=== PATIENT | female | born 1960 | race Hispanic/Latino ===

== ENCOUNTER 2018-08-19 15:31 | Outpatient (CLI) | payer BC ==
--- NOTE | 2018-08-21 11:12 | RAD ---
PA AND LATERAL CHEST: Date: 08/19/18 HISTORY: Syncope, fatigue. FINDINGS: Heart size within normal limits. Mediastinal structures appear unremarkable. Lungs are clear of infil trates. Minimal arthritic changes of the spine are noted. IMPRESSION: No active intrathoracic disease. POS: [facility]
== END 2018-08-19 15:32 | disposition home or self-care (01) ==
LOC: BICRAD 15:31
PROVIDERS: ATTEND Family Medicine
DX: I10 Essential (primary) hypertension (principal); R53.83 Other fatigue
CPT/HCPCS: 71046

== ENCOUNTER 2018-08-30 07:03 | Outpatient (CLI) | payer BC ==
--- NOTE | 2018-08-30 07:46 | ULT ---
US Thyroid STANDARD History: [M 54.2] Comparison: None. Findings: Real-time grayscale and color evaluation of the thyroid was performed. The thyroid is enlar ged. Isthmus measures 8 mm in AP dimension. Right lobe measures 2.3 x 6.2 x 2.7 cm and left lobe alessio ures 2.1 x 5.7 x 1.9 cm. There are background hyperechoic nodules throughout the thyroid which are very small, largest in the inferior right lobe measuring 4 mm. Impression: Enlarged heterogeneous thyroid with multiple small faint echogenic nodules largest in the right lobe of the thyroid can be seen with Wilfredo thyroiditis.
== END 2018-08-30 07:04 | disposition home or self-care (01) ==
LOC: BICULT 07:03
PROVIDERS: ATTEND Family Medicine
DX: I10 Essential (primary) hypertension (principal); R53.83 Other fatigue; E04.2 Nontoxic multinodular goiter; E04.9 Nontoxic goiter, unspecified
CPT/HCPCS: 76536

== ENCOUNTER 2018-09-24 16:52 | Observation (INO) | payer BC ==
[2018-09-24 17:18] LABS: #Basophils 0.1 thou/uL (0.0-0.2); #Eosinphils 0.1 thou/uL (0.0-0.7); #Lymphocytes 2.8 thou/uL (1.20-3.40); #Monocytes 0.7 thou/uL (0.11-0.59); #Neutrophils 7.9 thou/uL (1.40-6.50); %Basophils 0.6 % (0.0-1.0); %Lymphocytes 24.1 % (21.0-51.0); %Monocytes 5.8 % (0.0-10.0); %Neutrophils 68.5 % (42.0-75.0); Hemoglobin 12.3 g/dL (12.0-16.0); Mean Corpuscular HGB CONC 33.2 g/dL (32.0-36.0); Mean Corpuscular Hemoglobin 28.2 pg (27.0-31.0); Mean Corpuscular Volume 84.9 fL (78.0-98.0); Mean Platelet Volume 6.8 fL (7.4-10.4); Platelet Count 284 thou/uL (130-400); RBC Distribution Width 12.2 % (11.5-14.5); Red Blood Cell (RBC) Count 4.35 mill/uL (4.20-5.40); White Blood Cell (WBC) Count 11.6 thou/uL (4.8-10.8)
--- NOTE | 2018-09-24 17:28 | RAD ---
Portable frontal chest radiograph: 09/24/2018 COMPARISON: 08/19/2018 HISTORY: Fatigue FINDINGS: Stable mild increased linear interstitial density noted in the perihilar regions and both l fabi bases. No pneumothorax, pleural fluid, focal consolidation, or alveolar edema. IMPRESSION: No acute findings.
[2018-09-24 17:39] LABS: ALT (SGPT) 17 U/L (8-55); AST (SGOT) 21 U/L (5-34); Albumin 4.1 g/dL (3.5-5.0); Alkaline Phosphatase 122 U/L (40-150); Anion Gap 18 mmol/L (10-20); BUN (Urea Nitrogen) 31 mg/dL (9.8-20.1); Bilirubin, Total 0.6 mg/dL (0.2-1.2); CK (CPK) 112 U/L (29-168); Calc. Creatinine Clearance 0 mL/min (70-130); Calcium 9.6 mg/dL (7.8-10.44); Carbon Dioxide 22 mmol/L (22-29); Chloride 101 mmol/L (98-107); Estimated GFR-MDRD 48; Glucose 102 mg/dL (70-105); Potassium 4.4 mmol/L (3.5-5.1); Protein, Total 7.1 g/dL (6.0-8.3); Sodium 137 mmol/L (136-145)
[2018-09-24] MEDS ORDERED: Acetaminophen 650 MG Suppository PR PRN (19:46)
[2018-09-24] MEDS ORDERED: Ondansetron ODT 4 MG TAB PO PRN (19:46)
[2018-09-24] MEDS ORDERED: Acetaminophen 325 MG TAB PO PRN (19:46)
--- NOTE | 2018-09-24 20:00 | RAD ---
Right foot 3 views: 09/24/2018 COMPARISON: None HISTORY: Injury, trauma, pain FINDINGS: Impacted and laterally angulated fracture deformities are noted at the base of the second, third, and fourth metatarsal heads with mild comminution and impaction. No evidence for dislocation. There is degenerative change at the first metatarsal-phalangeal joint. There is enthesop hyte formation at the origin of the plantar aponeurosis. IMPRESSION: Fracture deformities at the base of the second, third, and fourth metatarsal heads.
[2018-09-24 20:27] LABS: Free T4 (Free Thyroxine) 2.17 ng/dL (0.70-1.48); Thyroid Stimulating Hormone Less than 0.0025 uIU/mL (0.35-4.94)
[2018-09-24 21:28] VITALS: BMI 35.9
[2018-09-24] MEDS ORDERED: Dextrose 5% in Water 1,000 ML IV PRN (22:54)
[2018-09-24] MEDS ORDERED: Dextrose 50% Abboject 50 ML SYRINGE SLOW IVP PRN (22:54)
[2018-09-24] MEDS ORDERED: HumaLOG 300 UNITS/3 ML VIAL SC PRN ×2 (22:54)
[2018-09-24 23:13] LABS: Bilirubin Negative (Negative); Blood, Urine Negative (Negative); Clarity CLEAR (Clear); Glucose, Urine (Dipstick) Negative (Negative); Leukocyte Trace (Negative); Nitrite Negative (Negative); Protein, Urine (Dipstick) Negative (Neg-Trace); Specific Gravity, Urine 1.013 (1.002-1.036)
[2018-09-24 23:15] LABS: Bacteria/HPF None Seen HPF (None Seen); Hyaline Casts/LPF 0-3 HYALINE CAST LPF (0-3 Hyaline); Pathc Cast-AUWi Flag 0.13 (0-2.49); RBC/HPF 0-3 HPF (0-3); Squamous Epithelial 0-3 HPF (0-3)
[2018-09-24 23:16] LABS: Urine Culture Reflex Yes Yes
[2018-09-24] MEDS: Famotidine 20 MG TAB PO SCH (23:40)
[2018-09-24] MEDS ORDERED: Methimazole 5 MG TAB PO SCH (23:45)
[2018-09-25 05:34] LABS: #Eosinphils 0.2 thou/uL (0.0-0.7); #Lymphocytes 2.3 thou/uL (1.20-3.40); #Monocytes 0.6 thou/uL (0.11-0.59); %Basophils 0.4 % (0.0-1.0); %Eosinophils 1.8 % (0.0-10.0); %Lymphocytes 25.2 % (21.0-51.0); %Monocytes 6.9 % (0.0-10.0); %Neutrophils 65.7 % (42.0-75.0); Hemoglobin 11.8 g/dL (12.0-16.0); Mean Corpuscular HGB CONC 33.4 g/dL (32.0-36.0); Mean Corpuscular Hemoglobin 28.4 pg (27.0-31.0); Mean Platelet Volume 7.1 fL (7.4-10.4); Platelet Count 262 thou/uL (130-400); RBC Distribution Width 12.1 % (11.5-14.5); Red Blood Cell (RBC) Count 4.16 mill/uL (4.20-5.40); White Blood Cell (WBC) Count 9.1 thou/uL (4.8-10.8)
--- NOTE | 2018-09-25 05:40 | HP ---
CHIEF COMPLAINT: Chest pain. HISTORY OF PRESENT ILLNESS: Ms. Flores is a 57-year-old woman who presents with complaints of midsternal chest pain that started this morning at approximately 8:00 a.m. She states it lasted a couple of minutes and was recurrent for a total of three episodes. She denies having any associated nausea, vomiting, or diaphoresis. No shortness of breath or palpitations. She reports walking in a restaurant when she was witnessed to have a syncopal episode. The patient does not recall any preceding symptoms and vaguely remembers waking on the ground with a passerby standing over her. The patient states she has had no further chest pain since then. She reports having pain in the right foot with numbness of the first through fourth toes. Denies any other pain elsewhere. No headaches or dizziness. No vision changes or speech disturbances. The patient did not sustain any other injuries including any head injuries. She is not sure if she did hit her head. REVIEW OF SYSTEMS: All other systems apart from those mentioned above are negative. She has not had any recent fevers, chills, or sweats. No abdominal pain or cramping. No changes with her bowels. No urinary symptoms. The patient vaguely mentioned experiencing shortness of breath at some point throughout the day, but was very vague. She is a poor historian in terms of being very vague in describing her symptoms. All other review of systems are negative. PAST MEDICAL HISTORY: 1. Diabetes. 2. Hyperlipidemia. 3. Hypertension. SURGICAL HISTORY: Abdominal surgery in the past. SOCIAL HISTORY: The patient denies any alcohol use or drug use. She smokes three cigarettes a day. ALLERGIES: NO KNOWN DRUG ALLERGIES. CURRENT MEDICATIONS: 1. Bisoprolol/HCTZ. 2. Lisinopril/HCTZ. 3. Fluoxetine HCl. 4. Potassium chloride. 5. Metformin. 6. Methimazole. PHYSICAL EXAMINATION: GENERAL: The patient appears well developed, well nourished, is in no acute distress. VITAL SIGNS: Temperature 98.1, pulse 83, respirations 18, O2 saturation 99% on room air, blood pressure 110/58. HEENT: Normocephalic and atraumatic. Pupils are equal, round, and reactive to light. Sclerae are anicteric. Sclerae without icterus. Extraocular movements intact. No nystagmus present. Oropharynx is clear. NECK: Supple without lymphadenopathy. Large thyroid present. The patient reports some discomfort on the right side of the posterior neck to reach of motion. No cervical spine, thoracic, or lumbar spine tenderness. LUNGS: Clear to auscultation bilaterally. CARDIAC: Regular rhythm. ABDOMEN: Soft, nontender, and nondistended. Normoactive bowel sounds present. EXTREMITIES: No swelling or edema. Power 5/5 in all limbs. Sensation intact except for the first, second, third, and fourth toes. The patient has circumferential numbness with tenderness at the base of the first, second, third, and fourth metatarsal heads. The patient has been unable to bear weight due to pain. Very tender to light palpation. NEUROLOGIC: Alert and oriented x3. No neuro deficits. Speech normal. Facial movements normal and sensation intact. LABORATORY DATA: White blood count 11.6, hemoglobin 12.3, hematocrit 37, platelets 284. Sodium 137, potassium 4.4, chloride 101, carbon dioxide 22, anion gap 18, BUN 31, creatinine 1.17, GFR 48, glucose 102, calcium 9.6, magnesium 1.9, total bilirubin 0.6, AST 21, ALT 17, and alkaline phosphatase 122. CK 112. Troponin negative x3. IMAGING DATA: Chest x-ray, no acute findings. IMPRESSION AND PLAN: Ms. Flores is a very pleasant 57-year-old woman being admitted for management of the followin. Chest pain. She had an episode of chest pain today, which occurred on 3 separate occasions, each lasting a couple of minutes over the span of approximately 3 hours. The pain was nonradiating and midsternal. No associated symptoms. Initial first and second troponin negative. BNP added on. Questionable associated shortness of breath. D-dimer added on. 2. Syncope. We will obtain orthostatic blood pressures. Echo requested. No evidence of head trauma and no headache. No nausea or vomiting. We will monitor and if she develops any symptoms, may consider CT imaging of the head. She is not on any blood thinners. 3. Thyroid disease. We will resume home medications. The patient states she has noted increased swelling of her neck region. We will resume home medication. 4. Diabetes. We will resume home medication and initiate insulin sliding scale. Monitor glucose. 5. Hypertension. We will resume home medications and monitor blood pressure. 6. Gastrointestinal prophylaxis. 7. Deep venous thrombosis prophylaxis. 8. Full code status. The patient's case was discussed with attending who agrees with plan of care as described above. Job ID: [id number]
[2018-09-25 05:56] LABS: Anion Gap 10 mmol/L (10-20); BUN (Urea Nitrogen) 29 mg/dL (9.8-20.1); Calc. Creatinine Clearance 120 mL/min (70-130); Calcium 9.7 mg/dL (7.8-10.44); Carbon Dioxide 26 mmol/L (22-29); Cardiac Risk 5.7 (Less than 4.5); Chloride 104 mmol/L (98-107); Cholesterol 137 mg/dl (< 200 Desired); Estimated GFR-MDRD 73; Glucose 124 mg/dL (70-105); HDL Cholesterol 24 mg/dL (>60 Neg Risk); LDL Cholesterol, Calculated 79 mg/dL; Sodium 136 mmol/L (136-145); Triglycerides 172 mg/dL (Less than 150)
[2018-09-25] MEDS: Sodium Chloride 0.9% 1,000 ML IV SCH ×2 (07:40→10:04)
[2018-09-25] MEDS ORDERED: metFORMIN 500 MG TAB PO SCH (08:00)
[2018-09-25] MEDS ORDERED: Methimazole 5 MG TAB PO SCH (08:00)
[2018-09-25] MEDS: Famotidine 20 MG TAB PO SCH (08:21)
[2018-09-25] MEDS ORDERED: FLUoxetine HCl 20 MG CAP PO SCH (09:00)
[2018-09-25] MEDS ORDERED: Lisinopril/Hydrochlorothiazide 10 mg/12.5 mg Tablet PO SCH (09:00)
[2018-09-25] MEDS ORDERED: Bisoprolol Fumarate/HCTZ 5 mg/6.25 mg Tablet PO SCH (09:00)
--- NOTE | 2018-09-25 09:50 | ULT ---
Carotid Doppler ultrasound evaluation. HISTORY: Syncope evaluate carotid arteries. Multiple longitudinal and transverse images of the carotid arteries are obtained using multi hertz li near array transducer. Real-time, color flow and spectral waveform Doppler analysis demonstrates atherosclerotic plaque calcified and noncalcified in the right and left distal common carotid arterie s extending to the internal carotid arteries. This is compatible with proximally 4050% bilateral CCA and proximal ICA stenosis. Flow velocities mildly increase in the right and left ICA measuring 12 3/35 cm in the right ICA and 123/37 cm the left ICA. Flow velocities are also increase in the right and left common carotid arteries measuring over a measuring 136/41 cm in the right CCA and 134/37 cm the left CCA. Antegrade flow seen in both vertebral arteries. Impression bilateral common and internal carotid artery disease due to calcified and noncalcified jenniffer ques. Correlate with CT angiography to further characterize
[2018-09-25 11:57] VITALS: BP 107/56; TEMP 97.8
--- NOTE | 2018-09-25 16:23 | CON ---
DATE OF CONSULTATION: This is Luis Burgess PA-C dictating a report for Wenceslao Guajardo MD. HISTORY OF PRESENT ILLNESS: We were asked by [facility] to see the patient. She apparently fainted and had some chest pain, awoke. She also has some pain to her right foot. X-ray showed she has a second, third, fourth metatarsal fractures. She is a little bit tender, swollen, but doing okay. Her son is at the bedside interpreting for her. In regard to the foot, she is able to wiggle her toes. Son states she does not have any symptoms of numbness and tingling as they have been explained to her. Past medical history, surgical history, family history, social history, medications, allergies can all be gleaned from her admit H and P. REVIEW OF SYSTEMS: Apparently no acute distress right now other than her foot after I have moved around. No shortness of breath. Denies bowel or bladder problems per son. Rest review of systems is negative. PHYSICAL EXAMINATION: GENERAL: Well-nourished female, no acute distress. Speech clear. Affect pleasant. Answers questions appropriately. Alert and oriented x3 per son who is interpreting. HEENT: Normal exam. EXTREMITIES: Upper extremities; equal size, shape, symmetry. Normal bulk and tone. Lower extremities; right foot is a little bit swollen, but she has good bilateral DP/PT pulses. She is able to move the right foot a little bit, but it is tender for her to do so. She does have some swelling. ASSESSMENT: Fractures to right foot secondary to fall, nondisplaced. PLAN: We will get the patient into a walking boot. Have her follow up with us in 3 to 4 weeks, sooner if there are problems or concerns. This has been explained to the son who is related to the mother. Her questions have been answered and she had no further questions or concerns. She can work with Physical Therapy. She can tolerate it and weightbearing as tolerated. Job ID: [id number]
--- NOTE | 2018-09-25 21:29 | DIS ---
DATE OF ADMISSION: 09/24/2018 DATE OF DISCHARGE: 09/25/2018 DISCHARGE DIAGNOSES: 1. Syncope, likely multifactorial including dehydration and hyperthyroidism. 2. Acute kidney injury secondary to dehydration, improved. 3. Hyperthyroidism, treated with methimazole. 4. Right foot fracture status post fall. 5. Hypertension, stable. 6. Diabetes mellitus type 2, on oral hypoglycemics. CONSULTATIONS: None. PERTINENT LAB AND X-RAY FINDINGS: Creatinine ranged between 0.81 to 1.17. Estimated GFR ranged between 48 to 73. LFTs within normal limits. Troponin I negative x3. BNP 52. TSH less than 0.0025. Free T4 level 2.17. Total cholesterol 137, triglycerides 172, HDL 24, LDL 79. Portable chest x-ray dated 09/24/2018, showed no acute cardiopulmonary process. Carotid Doppler study dated 09/25/2018, showed low-grade stenosis of bilateral carotid system 40% to 50%. Three views of the right foot dated 09/24/2018, showed fracture deformities at the base of the second, third, and fourth metatarsal heads. 2D transthoracic echocardiogram pending at the time of this dictation. HOSPITAL COURSE: The patient was initially observed on the telemetry unit after presenting with chest discomfort, status post syncopal episode. The patient underwent extensive evaluation including metabolic and radiographic screening. The patient was discovered with a right foot fracture involving the second, third and fourth metatarsals. The patient was evaluated by Orthopedic Surgery with placement of a walking boot with recommendations for outpatient followup. The patient also was noted with mild acute kidney injury with likely dehydration, improved and resolving prior to discharge. The patient's presentation also consistent with potential complications of hyperthyroidism prompting this evaluation. The patient may need additional titration of her methimazole on an ongoing basis after discharge. The patient may also be deemed an appropriate candidate for radioactive ablation therapy for her thyroid disorder. Telemetry monitoring showed sinus mechanism without acute arrhythmia or dysrhythmia, and patient overall remained clinically stable under observation. I have examined the patient, discussed followup instructions with the patient and family, who verbalized understanding and in agreement. The patient overall clinically stable and ready for discharge on 09/25/2018. DISCHARGE MEDICATIONS: 1. Bisoprolol/hydrochlorothiazide 5/6.25 mg 1 tablet p.o. daily. 2. Fluoxetine 40 mg p.o. daily. 3. Lisinopril/hydrochlorothiazide 10/12.5 mg 1 tablet p.o. daily. 4. Metformin 500 mg p.o. b.i.d. 5. Methimazole 10 mg p.o. b.i.d. 6. Potassium chloride 10 mEq p.o. daily. FOLLOWUP: The patient may follow up with her primary care provider, Dr. Ngozi Hoffman, within 3 days of discharge. The patient will follow up with Dr. Wenceslao Guajardo with Orthopedic Surgery Service in 3 to 4 weeks after discharge. CONDITION ON DISCHARGE: Stable. ACTIVITY: Ad-mariusz. DIET: Heart healthy and ADA. SPECIAL INSTRUCTIONS: Continue ambulation with walking boot per orthopedic surgery recommendations. CODE STATUS: Full. DISPOSITION: To home, 09/25/2018. Job ID: [id number]
== END 2018-09-25 15:05 | disposition home or self-care (01) ==
LOC: ERS 16:52 → 2SW 17:50
PROVIDERS: ADMIT Family Medicine; ATTEND Family Medicine
DX: R55 Syncope and collapse (principal); R07.89 Other chest pain; E03.9 Hypothyroidism, unspecified; E86.0 Dehydration; N17.9 Acute kidney failure, unspecified; I10 Essential (primary) hypertension; E11.9 Type 2 diabetes mellitus without complications; E78.5 Hyperlipidemia, unspecified; F17.210 Nicotine dependence, cigarettes, uncomplicated; S92.901A Unspecified fracture of right foot, initial encounter for closed fracture; Z79.84 Long term (current) use of oral hypoglycemic drugs; Z79.899 Other long term (current) drug therapy
CPT/HCPCS: 36415; 36416; 71045; 80048; 80053; 80061; 81001; 82550; 83735; 83880; 84439; 84443; 84484; 85025; 85379; 87086; 93005; 93306; 93880; G0378

== ENCOUNTER 2019-05-01 14:00 | Outpatient (CLI) | payer BC ==
--- NOTE | 2019-05-01 14:40 | BD ---
+DEXA BONE MINERAL DENSITY STUDY: HISTORY: Osteoporosis screening. COMPARISON: None. FINDINGS: Lumbar Spine: BMD (g/cm2) L1 1.065 T-Score: 0.7 1.8 L2 1.154 T-Score: 1.1 2.4 L3 1.125 T-Score: 0.4 1.6 L4 1.199 T-Score: 1.2 2.5 L1-L4 1.135 T-Score: 0.8 2.0 Femoral Neck: 0.916 T-Score: 0.6 1.8 Total Femur: 1.132 T-Score: 1.6 2.4 Normal bone mineral density. Impression: Normal bone mineral density. POS: [facility]
--- NOTE | 2019-05-01 14:52 | MMO ---
Bilateral MAMMO Bilat Screen [facility]. CLINICAL HISTORY: Patient is 58 years old and is seen for screening. The patient has no family history of breast cancer. The patient has no personal history of cancer. VIEWS: The views performed were: bilateral craniocaudal with tomosynthesis and bilateral mediolateral oblique with tomosynthesis. This study has been interpreted with the assistance of computer-aided detection. MAMMOGRAM FINDINGS: There are scattered fibroglandular densities. Finding 1: There are stable benign appearing calcifications seen in both breasts. Finding 2: There are two intramammary lymph nodes seen in the left breast. There are no suspicious masses, suspicious calcifications, or new areas of architectural distortion. IMPRESSION: THERE IS NO MAMMOGRAPHIC EVIDENCE OF MALIGNANCY. A ROUTINE FOLLOW-UP MAMMOGRAM IN 1 YEAR IS RECOMMENDED. THE RESULTS OF THIS EXAM WERE SENT TO THE PATIENT. ACR BI-RADS Category 2 - Benign finding MAMMOGRAPHY NOTE: 1. A negative mammogram report should not delay a biopsy if a dominant of clinically suspicious mass is present. 2. Approximately 10% to 15% of breast cancers are not detected by mammography. 3. Adenosis and dense breasts may obscure an underlying neoplasm. Reported by: RAJIV ARNDT MD Electonically Signed: [id number]
--- NOTE | 2019-05-01 15:11 | RAD ---
PORTABLE CHEST 1 VIEW: DATE: 05/01/2019. TIME: 2:55 p.m. HISTORY: Abnormal electrocardiogram. FINDINGS: Comparison is made with the exam of 09/24/2018. The heart size is normal. The lungs are expanded with stable chronic changes. No focal areas of con solidation, pneumothoraces, or pleural effusions are seen. IMPRESSION: No acute process. POS: [facility]
== END 2019-05-01 14:01 | disposition home or self-care (01) ==
LOC: BICMAMMO 14:00
PROVIDERS: ATTEND Family Medicine
DX: Z12.31 Encounter for screening mammogram for malignant neoplasm of breast (principal); Z13.820 Encounter for screening for osteoporosis; R94.31 Abnormal electrocardiogram [ECG] [EKG]; E05.90 Thyrotoxicosis, unspecified without thyrotoxic crisis or storm; E01.0 Iodine-deficiency related diffuse (endemic) goiter
CPT/HCPCS: 71045; 77063; 77067; 77080

== ENCOUNTER 2019-05-02 15:25 | Outpatient (CLI) | payer BC ==
--- NOTE | 2019-05-02 17:26 | RAD ---
Cervical spine 3 views: 05/02/2019 COMPARISON: None HISTORY: Abnormal electrocardiogram, pain FINDINGS: There is mild disc space narrowing and mild anterior osteophyte formation at C4-5 and C5-6. There is mild degenerative change at the atlantoaxial interspace. No anterolisthesis or retrolisthesis. Open-mouth odontoid view appears within normal limits. IMPRESSION: Mild cervical spine degenerative change. If there are radicular symptoms, MRI suggested.
== END 2019-05-02 15:26 | disposition home or self-care (01) ==
LOC: RAD 15:25
PROVIDERS: ATTEND Family Medicine
DX: R94.31 Abnormal electrocardiogram [ECG] [EKG] (principal); M47.812 Spondylosis without myelopathy or radiculopathy, cervical region
CPT/HCPCS: 72040

== ENCOUNTER 2019-05-25 16:03 | Outpatient (CLI) | payer BC ==
--- NOTE | 2019-05-25 16:45 | RAD ---
RADIOGRAPH CHEST 2 VIEW: DATE: 05/25/2019 HISTORY: Tuberculosis exposure FINDINGS: There is no evidence of airspace density, cavitation, pleural effusion, or mass. Interstitial changes at the bilateral lung bases, right greater than left. Acute versus chronic. Favor chronic. No cardiomegaly or mediastinal widening. No pneumothorax. IMPRESSION: 1. No evidence of active post primary tuberculosis. 2. Interstitial changes at lung bases, especially at right.
== END 2019-05-25 16:04 | disposition home or self-care (01) ==
LOC: BICRAD 16:03
DX: R76.11 Nonspecific reaction to tuberculin skin test without active tuberculosis (principal)
CPT/HCPCS: 71046

== ENCOUNTER 2019-06-12 08:25 | Outpatient (CLI) | payer BC ==
--- NOTE | 2019-06-13 10:37 | NM ---
NUCLEAR MEDICINE THYROID SCAN AND UPTAKE: DATE: 06/13/2019. HISTORY: A 58-year-old female with ICD-10: E05.90, thyrotoxicosis without thyroid toxic crisis or storm. TECHNIQUE: P.o. administered of 0.25 mCi of I-123. Six-hour and 24-hour uptake studies performed. Thyroid scintigraphy in 3 projections. FINDINGS: There is homogeneous uptake of radiopharmaceutical throughout the left and right lobes without obviou s hot or cold discrete nodules. Six-hour uptake: 33% (normal range 6-18%). 24-hour uptake: 47% (normal range 10-30%). IMPRESSION: Evidence for hyperthyroidism due to Grave's disease. POS: [facility]
== END 2019-06-12 08:26 | disposition home or self-care (01) ==
LOC: NM 08:25
PROVIDERS: ATTEND Internal Medicine Endocrinology, Diabetes & Metabolism
DX: E05.00 Thyrotoxicosis with diffuse goiter without thyrotoxic crisis or storm (principal)
CPT/HCPCS: 78014; A9516

== ENCOUNTER 2019-07-03 13:37 | Outpatient (CLI) | payer BC ==
--- NOTE | 2019-07-03 13:55 | NM ---
NUCLEAR MEDICINE RADIOIODINE THERAPY: HISTORY: Hyperthyroid Graves' disease PROCEDURE: After discussing the risks, benefits, alternatives and radiation precaution issues with the patient, verbal and written consent was obtained for radioiodine therapy. The patient verbalized understanding and was treated with 14 mCi Iodine 131 orally without complications. The patient will f ollow-up with Dr. Kessler
== END 2019-07-03 13:38 | disposition home or self-care (01) ==
LOC: NM 13:37
PROVIDERS: ATTEND Internal Medicine Endocrinology, Diabetes & Metabolism
DX: E05.90 Thyrotoxicosis, unspecified without thyrotoxic crisis or storm (principal); E08.00 Diabetes mellitus due to underlying condition with hyperosmolarity without nonketotic hyperglycemic-hyperosmolar coma (NKHHC)
CPT/HCPCS: 79005; A9517

== ENCOUNTER 2023-10-15 11:03 | Outpatient (CLI) | payer OTHER | END 2023-10-15 11:04 | disposition home or self-care (01) | LOC: BICRAD 11:03 | PROVIDERS: ATTEND Family Medicine | DX: R76.12 Nonspecific reaction to cell mediated immunity measurement of gamma interferon antigen response without active tuberculosis (principal) | CPT/HCPCS: 71045 ==